=== PATIENT | female | born 1980 | race African-American/Black ===

== ENCOUNTER → 2020-04-03 | Outpatient (CLI) | payer OTHER | LOC: M.ULTRA 04-01 14:30 | PROVIDERS: ATTEND Internal Medicine | DX: R16.0 Hepatomegaly, not elsewhere classified (principal); I70.0 Atherosclerosis of aorta; Z90.49 Acquired absence of other specified parts of digestive tract ==

== ENCOUNTER → 2020-05-30 | Outpatient (CLI) | payer OTHER | LOC: M.RAD 07:26 | PROVIDERS: ATTEND Internal Medicine | DX: M17.0 Bilateral primary osteoarthritis of knee (principal) ==